=== PATIENT | male | born 1990 | race Caucasian/White ===

== ENCOUNTER 2018-10-29 15:13 | Emergency (ER) | payer OTHER ==
[2018-10-29] MEDS ORDERED: NORMAL SALINE 500 ML IV.SOLN IV ONE (15:15)
[2018-10-29] MEDS ORDERED: methylPREDNISolone SOD SUCC 125 MG/2 ML VIAL IVP ONE (15:16)
[2018-10-29] MEDS ORDERED: FAMOTIDINE 20 MG/2 ML VIAL IV ONE (15:16)
--- NOTE | 2018-10-29 15:19 | ED Physician Documentation ---
Allergy Symptoms - HISTORIAN Historian: patient - HPI Stated Complaint: bee sting/hand swelling Chief Complaint: Allergic Reaction Additional Information: Patient presents to ED with hand swelling after being stung by a bee. 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 He was mowing today and was stung by a bee on his left leg. He ran into the house to get his epipen but could not find it. He noticed his hands swelling so he took 3 benedryl tablets and came to the ER. He denies shortness of breath or difficulty swallowing. Onset: minutes (10) Duration: continues in ED Associated Symptoms: other (hand swelling) Shortness of Breath: none Trouble Swallowing/ Speaking: none Identified Cause: yes Context: Food Exposure: none Where: home Context: Medication Exposure: none Context: Other Exposure: bee sting Further Comments: no - ROS EYES/ENT: denies: sore throat CVS/RESP: denies: chest pain, shortness of breath GI/: denies: vomiting, nausea CONST: none MS/SKIN/LYMPH: none NEURO/PSYCH: none - PAST HX Prior Allergic Reaction: none Medical History: none Allergies/Adverse Reactions: Allergies Allergy/AdvReac Type Severity Reaction Status Date / Time bee venom protein (honey bee) Allergy Verified 10/29/18 15:56 Home Medications: Ambulatory Orders Medication Instructions Recorded Aripiprazole 5 mg PO HS 10/29/18 Fluticasone Propionate 110 Mcg 1 puff INH PRN PRN 10/29/18 [Flovent Hfa] Hydrochlorothiazide [Hydrodiuril] 12.5 mg PO DAILY 10/29/18 predniSONE [Deltasone] 10 mg PO DAILY #10 tablet 10/29/18 - SOCIAL HX Smoking History: non-smoker Alcohol Use: none Drug Use: none - FAMILY HX Family History: Yes - REVIEWED ASSESSMENTS Nursing Assessment Reviewed: Yes Vitals Reviewed: Yes Progress - Progress Progress: 1626 Patient resting comfortably. Denies shortness of breath or difficulty swallowing. No signs of reaction. ED Results Lab/Radiology - Orders Orders: ED Orders Category Date Time Status Place IV Lock 1T Care 10/29/18 15:16 Ordered CBC/PLATELET/DIFF Routine Lab 10/29/18 Ordered CMP Routine Lab 10/29/18 Ordered Famotidine/Pf [Pepcid] Med 10/29/18 15:16 Once 40 mg IV NOW ONE methylPREDNISolone SOD SUCC [SOLU-Medrol] Med 10/29/18 15:16 Once 125 mg IVP NOW ONE Allergy Symptons Exam - EXAM General Appearance: no acute distress, alert HEENT: pharynx nml, voice nml Skin: no rash Extremities: non-tender, nml ROM Neck: nml inspection Respiratory: no resp. distress, breath sounds nml CVS: reg rate & rhythm, heart sounds normal Abdomen: non-tender, nml bowel sounds Neuro: oriented X3, CN's nml as tested, motor nml, sensation nml, mood/affect nm l Discharge Clincal Impression: Bee sting reaction Qualifiers: Encounter type: initial encounter Injury intent: accidental or unintentional Qualified Code(s): T63.441A - Toxic effect of venom of bees, accidental (unintentional), initial encounter Prescriptions: predniSONE [Deltasone] 10 mg PO DAILY #10 tablet Referrals: Primary Doctor,No [Primary Care Provider] - 2 Days Condition: Stable Disposition: 01 HOME, SELF-CARE Decision to Admit: NO Date of Decison to Admit: 10/29/18 Decision Time: 16:40
[2018-10-29 15:25] LABS: BASOPHILS % 0.5 % (0.0-1.5); NEUTROPHILS # 12.2 # k/uL (1.4-7.7)
[2018-10-29 15:35] LABS: eGFR (Non-African) > 60
[2018-10-29 18:03] VITALS: BP 116/66
== END 2018-10-29 17:52 | disposition home or self-care (01) ==
LOC: ED 15:13
DX: T63.411A Toxic effect of venom of centipedes and venomous millipedes, accidental (unintentional), initial encounter (principal)
CPT/HCPCS: 80053; 85025; 96374; 96375; 99284; J2930; J7060; S1016